=== PATIENT | female | born 1995 | race Caucasian/White ===

== ENCOUNTER 2019-10-03 20:05 | Emergency (ER) | payer MEDICAID ==
[~2019-10-03] VITALS: Ht 165.1 cm; Wt 47.4 kg
[2019-10-03 20:48] VITALS: BP 105/68
[2019-10-03] MEDS ORDERED: NALO4SPR NAS (21:31)
[2019-10-03] MEDS ORDERED: [UNRECOGNIZED DRUG - CODE] PO (21:34)
== END 2019-10-03 21:53 | disposition home or self-care (01) ==
LOC: ER 20:06
DX: Z02.89 Encounter for other administrative examinations (principal)
CPT/HCPCS: 99283

== ENCOUNTER 2020-05-04 21:19 | Emergency (ER) | payer MEDICAID ==
[~2020-05-04] VITALS: Ht 165.1 cm; Wt 59.1 kg
[~2020-05-04 21:19] MED LIST: CLON-473 PO; NALO4SPR NAS
[2020-05-04 21:26] VITALS: BP 114/65
== END 2020-05-04 23:30 | disposition home or self-care (01) ==
LOC: ER 21:19
DX: O26.892 Other specified pregnancy related conditions, second trimester (principal); F11.90 Opioid use, unspecified, uncomplicated; Z79.899 Other long term (current) drug therapy; Z3A.25 25 weeks gestation of pregnancy
CPT/HCPCS: 99281; 99284

== ENCOUNTER 2020-12-21 00:35 | Emergency (ER) | payer MEDICAID, OTHER ==
[~2020-12-21] VITALS: Ht 165.1 cm; Wt 125.0 kg
[2020-12-21 00:39] VITALS: BP 112/75
== END 2020-12-21 00:55 | disposition home or self-care (01) ==
LOC: ER 00:36
DX: F11.20 Opioid dependence, uncomplicated (principal); F41.9 Anxiety disorder, unspecified; F31.9 Bipolar disorder, unspecified; Z79.899 Other long term (current) drug therapy; Z71.51 Drug abuse counseling and surveillance of drug abuser
CPT/HCPCS: 99281

== ENCOUNTER 2021-03-22 11:41 | Emergency (ER) | payer MEDICAID ==
[~2021-03-22] VITALS: Ht 165.1 cm; Wt 51.6 kg
[2021-03-22 13:08] VITALS: BP 98/57
== END 2021-03-22 17:47 | disposition left against medical advice (07) ==
LOC: ER 11:41
DX: F11.10 Opioid abuse, uncomplicated (principal); Z53.21 Procedure and treatment not carried out due to patient leaving prior to being seen by health care provider

== ENCOUNTER 2021-05-28 00:17 | Emergency (ER) | payer MEDICAID ==
[~2021-05-28] VITALS: Ht 165.1 cm; Wt 53.6 kg
[2021-05-28 00:26] VITALS: BP 113/97
== END 2021-05-28 02:41 | disposition home or self-care (01) ==
LOC: ER 00:17
DX: B34.9 Viral infection, unspecified (principal); Z20.822 Contact with and (suspected) exposure to COVID-19; R69 Illness, unspecified; R05 Cough; R09.89 Other specified symptoms and signs involving the circulatory and respiratory systems; F41.9 Anxiety disorder, unspecified; F31.9 Bipolar disorder, unspecified; F11.90 Opioid use, unspecified, uncomplicated; Z79.899 Other long term (current) drug therapy
CPT/HCPCS: 71045; 87635; 99284; C9803